=== PATIENT | male | born 1930 | race Caucasian/White ===

== ENCOUNTER 2017-03-28 16:27 | Outpatient (CLI) | payer MEDICARE, OTHER ==
[2017-03-28 17:38] LABS: Hematocrit 46.8 % (42.0-52.0); Mean Platelet Volume 6.5 fL (7.4-10.4); White Blood Cell (WBC) Count 7.2 thou/uL (4.8-10.8)
[2017-03-28 17:47] LABS: PTT 29.7 SEC (22.9-36.1); Prothrombin Time 14.5 SEC (12.0-14.7)
[2017-03-28 18:11] LABS: ALT (SGPT) 16 U/L (8-55); AST (SGOT) 26 U/L (5-34); Alkaline Phosphatase 104 U/L (40-150); Anion Gap 15 mmol/L (10-20); BUN (Urea Nitrogen) 13 mg/dL (8.4-25.7); Bilirubin, Total 1.1 mg/dL (0.2-1.2); Calc. Creatinine Clearance 0 mL/min (70-130); Calcium 9.6 mg/dL (7.8-10.44); Carbon Dioxide 19 mmol/L (23-31); Chloride 104 mmol/L (98-107); Estimated GFR-MDRD 68; Globulin 4.1 g/dL (2.4-3.5); Protein, Total 7.9 g/dL (5.8-8.1)
== END 2017-03-28 16:28 | disposition home or self-care (01) ==
LOC: LABBT 16:27
PROVIDERS: ATTEND Internal Medicine Cardiovascular Disease
DX: Z01.818 Encounter for other preprocedural examination (principal); I42.9 Cardiomyopathy, unspecified
CPT/HCPCS: 80053; 85027; 85610; 85730